=== PATIENT | female | born 1970 | race Asian ===

== ENCOUNTER 2016-10-08 03:55 | Emergency (ER) | payer OTHER ==
[2016-10-08] MEDS ORDERED: SODIUM CHLORIDE 1,000 ML IV STA (04:27)
[2016-10-08 04:28] VITALS: BMI 30.8
--- NOTE | 2016-10-08 04:29 | PDOC ---
History of Present Illness - General Chief Complaint: Vaginal Bleeding Stated Complaint: 7 WKS PREG, VAGINAL BLEEDING Time Seen by Provider: 10/08/16 04:18 - History of Present Illness Initial Comments: 10/08/16 05:09 45-year-old female with heavy vaginal bleeding since this afternoon passing clots. Patient had a confirmed IUP in the [facility] office earlier today. LMP 08/02/2016. Patient reports mild lower abdominal cramping with some nausea. Patient denies any previous complications during . 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 Past History - Past Medical History Allergies/Adverse Reactions: Allergies Allergy/AdvReac Type Severity Reaction Status Date / Time No Known Drug Allergies Allergy Verified 04/12/13 17:18 Home Medications: Ambulatory Orders NK [No Known Home Medication] 10/08/16 Anemia: Yes Asthma: No Cancer: No Cardiac Disorders: No CVA: No COPD: No CHF: No Dementia: No Diabetes: No GI Disorders: No Disorders: No HTN: No Hypercholesterolemia: No Liver Disease: No Seizures: No Thyroid Disease: No - Surgical History Abdominal Surgery: No Appendectomy: No Cardiac Surgery: No Cholecystectomy: No Lung Surgery: No Neurologic Surgery: No Orthopedic Surgery: No - Psycho/Social/Smoking Cessation Hx Smoking History: Never smoked Have you smoked in the past 12 months: No Hx Alcohol Use: No Drug/Substance Use Hx: No Substance Use Type: None Hx Substance Use Treatment: No Review of Systems - Review of Systems Able to Perform ROS?: Yes Is the patient limited [place] proficient: No Constitutional: No: Symptoms Reported, See HPI, Chills, Diaphoresis, Fever, Loss of Appetite, Malaise, Night Sweats, Weakness, Weight Stable, Unintentional Wgt. Loss, Unexplained wgt Loss, Other : Yes: Other (vaginal bleeding) *Physical Exam - Physical Exam General Appearance: Yes: Appropriately Dressed Female Pelvic Exam: positive: normal external exam, other (unable to visualize IS due to large clots. ) Gastrointestinal/Abdominal: positive: Normal Bowel Sounds, Soft, Other (patient ) ED Treatment Course - LABORATORY CBC & Chemistry Diagram: 10/08/16 04:40 Progress Note - Progress Note Progress Note: A: vaginal bleeding in ; cystitis P; cbc WBC 17 cmp beta hcg UA: WBC + leuks: TVUS *DC/Admit/Observation/Transfer Diagnosis at time of Disposition: Vaginal bleeding in Qualifiers: Trimester: first trimester Qualified Code(s): O46.91 - Antepartum hemorrhage, unspecified, first trimester - Referrals Referrals: Aurora Segura MD [Primary Care Provider] -
[2016-10-08 04:46] LABS: BASOPHIL 0.6 % (0-2.0); EOSINOPHIL 1.7 % (0-4.5); MCH 24.6 pg (25.7-33.7); MCHC 31.1 g/dl (32.0-36.0); MEAN CELL VOLUME 79.1 fl (80-96); MEAN PLT VOLUME 6.8 fl (7.5-11.1); NEUTROPHILS 77.9 % (42.8-82.8); PLATELET COUNT 395 K/MM3 (134-434); RDW 15.7 % (11.6-15.6); WHITE BLOOD COUNT 17.5 K/mm3 (4.0-10.0)
[2016-10-08 04:46] LABS: URINE APPEARANCE CLEAR; URINE BILIRUBIN NEGATIVE (NEGATIVE); URINE BLOOD 3+ (NEGATIVE); URINE COLOR LTYELLOW; URINE GLUCOSE (UA) NEGATIVE (NEGATIVE); URINE KETONE NEGATIVE (NEGATIVE); URINE NITRITE NEGATIVE (NEGATIVE); URINE UROBILINOGEN NEGATIVE mg/dL (0.2-1.0)
[2016-10-08 04:53] LABS: URINE LEUK ESTERASE 1+ (NEGATIVE); URINE PROTEIN 1+ (NEGATIVE)
[2016-10-08 04:58] LABS: INR 1.04 (0.82-1.09); PROTHROMBIN TIME (PATIENT) 11.4 SEC (9.98-11.88)
[2016-10-08 04:59] LABS: CALCIUM OXALATE CRYSTALS RARE /hpf (NONE SEEN); URINE BACTERIA RARE /hpf (NONE SEEN); URINE RBC 185 /hpf (0-3); URINE WBC 29 /hpf (3-5)
--- NOTE | 2016-10-08 05:58 | PDOC ---
*Physical Exam - Vital Signs Last Vital Signs Temp Pulse Resp BP Pulse Ox 98.8 F 104 H 18 141/91 99 10/08/16 04:26 10/08/16 04:26 10/08/16 04:26 10/08/16 04:26 10/08/16 04:26 ED Treatment Course - LABORATORY CBC & Chemistry Diagram: 10/08/16 04:40 - ADDITIONAL ORDERS Additional order review: Laboratory Results 10/08/16 10/08/16 10/08/16 04:40 04:40 04:31 INR 1.04 Beta HCG, Quant 4835.7 Urine Color Ltyellow Urine Appearance Clear Urine pH 6.0 Urine Protein 1+ H Urine Glucose (UA) Negative Urine Ketones Negative Urine Blood 3+ H Urine Nitrite Negative Urine Bilirubin Negative Urine Urobilinogen Negative Ur Leukocyte Esterase 1+ H Urine RBC 185 Urine WBC 29 Ur Epithelial Cells Rare Calcium Oxalate Crystal Rare Urine Bacteria Rare 10/08/16 04:40 RBC 4.88 MCV 79.1 L MCHC 31.1 L RDW 15.7 H D MPV 6.8 L D Neutrophils % 77.9 Lymphocytes % 12.0 Monocytes % 7.8 Eosinophils % 1.7 D Basophils % 0.6 - Medications Given in the ED: ED Medications Discontinued Medications Generic Name Dose Route Start Last Admin Trade Name Freq PRN Reason Stop Dose Admin Sodium Chloride 1,000 mls @ 1,000 mls/hr 10/08/16 04:27 10/08/16 05:02 Normal Saline - IV 10/08/16 05:26 1,000 mls/hr ASDIR STA Administration Medical Decision Making - Medical Decision Making 10/08/16 05:58 agree with care from BHUMI Barnes *DC/Admit/Observation/Transfer Diagnosis at time of Disposition: Vaginal bleeding in Qualifiers: Trimester: first trimester Qualified Code(s): O46.91 - Antepartum hemorrhage, unspecified, first trimester - Discharge Dispostion Disposition: HOME Condition at time of disposition: Good - Prescriptions Prescriptions: Nitrofurantoin Monohyd/M-Cryst [Macrobid -] 100 mg PO BID #14 capsule - Referrals Referrals: Aurora Segura MD [Primary Care Provider] - - Patient Instructions Printed Discharge Instructions: Miscarriage Additional Instructions: An early is seen in the uterus at approximately 6 weeks 4 days, but with no cardiac activity suspicious for possible miscarriage. You will need to follow-up with your SITE HEAD in 2 days for repeat evaluation. Your beta today was over 4835. You are also treated for possible UTI - Post Discharge Activity
[2016-10-08 06:06] VITALS: TEMP 98.3
--- NOTE | 2016-10-08 07:31 | PDOC ---
*Physical Exam - Vital Signs Last Vital Signs Temp Pulse Resp BP Pulse Ox 98.3 F 87 18 135/75 98 10/08/16 06:05 10/08/16 07:05 10/08/16 07:05 10/08/16 07:05 10/08/16 07:05 - Physical Exam General Appearance: Yes: Appropriately Dressed. No: Apparent Distress HEENT: positive: Normal Voice Neck: positive: Supple Respiratory/Chest: negative: Respiratory Distress Gastrointestinal/Abdominal: positive: Soft. negative: Tender Extremity: positive: Normal Inspection Integumentary: positive: Dry, Warm Neurologic: positive: Fully Oriented, Alert, Normal Mood/Affect ED Treatment Course - LABORATORY CBC & Chemistry Diagram: 10/08/16 04:40 - ADDITIONAL ORDERS Additional order review: Laboratory Results 10/08/16 10/08/16 10/08/16 04:40 04:40 04:40 INR 1.04 Beta HCG, Quant 4835.7 Urine Color Urine Appearance Urine pH Urine Protein Urine Glucose (UA) Urine Ketones Urine Blood Urine Nitrite Urine Bilirubin Urine Urobilinogen Ur Leukocyte Esterase Urine RBC Urine WBC Ur Epithelial Cells Calcium Oxalate Crystal Urine Bacteria Blood Type O POSITIVE Antibody Screen Negative 10/08/16 04:31 INR Beta HCG, Quant Urine Color Ltyellow Urine Appearance Clear Urine pH 6.0 Urine Protein 1+ H Urine Glucose (UA) Negative Urine Ketones Negative Urine Blood 3+ H Urine Nitrite Negative Urine Bilirubin Negative Urine Urobilinogen Negative Ur Leukocyte Esterase 1+ H Urine RBC 185 Urine WBC 29 Ur Epithelial Cells Rare Calcium Oxalate Crystal Rare Urine Bacteria Rare Blood Type Antibody Screen 10/08/16 04:40 RBC 4.88 MCV 79.1 L MCHC 31.1 L RDW 15.7 H D MPV 6.8 L D Neutrophils % 77.9 Lymphocytes % 12.0 Monocytes % 7.8 Eosinophils % 1.7 D Basophils % 0.6 - Medications Given in the ED: ED Medications Discontinued Medications Generic Name Dose Route Start Last Admin Trade Name Freq PRN Reason Stop Dose Admin Sodium Chloride 1,000 mls @ 1,000 mls/hr 10/08/16 04:27 10/08/16 05:02 Normal Saline - IV 10/08/16 05:26 1,000 mls/hr ASDIR STA Administration Medical Decision Making - Medical Decision Making 10/08/16 07:30 45 yo F, , p/w 1st trimester bleed. Unable to assess Os 2/2 clots in vault per prior team. Ua w/ 1+ LE. Ucx pending, plan is to treat. Beta >4K. O+ on T&S, US pending 10/08/16 07:31 10/08/16 07:54 10/08/16 09:44 Low lying gestational sac in cervix @ 6w 4d, w/ no cardiac activity c/f miscarriage. Pt remains stable in ED. Will dc to f/u with SNOW TECHNICIAN 10/08/16 10:06 *DC/Admit/Observation/Transfer Diagnosis at time of Disposition: Vaginal bleeding in Qualifiers: Trimester: first trimester Qualified Code(s): O46.91 - Antepartum hemorrhage, unspecified, first trimester - Discharge Dispostion Disposition: HOME Condition at time of disposition: Good - Prescriptions Prescriptions: Nitrofurantoin Monohyd/M-Cryst [Macrobid -] 100 mg PO BID #14 capsule - Referrals Referrals: Aurora Segura MD [Primary Care Provider] - - Patient Instructions Printed Discharge Instructions: Miscarriage Additional Instructions: An early is seen in the uterus at approximately 6 weeks 4 days, but with no cardiac activity suspicious for possible miscarriage. You will need to follow-up with your SNOW TECHNICIAN in 2 days for repeat evaluation. Your beta today was over 4835. You are also treated for possible UTI - Post Discharge Activity
[2016-10-08] MEDS ORDERED: ACETAMINOPHEN 325 MG TABLET (FP) PO ONE (07:55)
[2016-10-08] MEDS ORDERED: ACETAMINOPHEN 325 MG TABLET (FP) ONE (08:01)
[2016-10-08 10:05] VITALS: BP 125/75; PULSE 90
== END 2016-10-08 10:10 | disposition home or self-care (01) ==
LOC: JER 03:55
PROC: 3E0337Z Introduction of Electrolytic and Water Balance Substance into Peripheral Vein, Percutaneous Approach (ICD-10-PCS; principal; 2016-10-08)
DX: O26.891 Other specified pregnancy related conditions, first trimester (principal); O46.91 Antepartum hemorrhage, unspecified, first trimester; Z3A.01 Less than 8 weeks gestation of pregnancy
CPT/HCPCS: 36415; 76817-TC; 76856-TC; 81003; 81015; 84702; 85025; 85610; 86850; 86900; 86901; 87086; 96360; 99283-25

== ENCOUNTER 2016-10-10 13:45 | Day surgery (SDC) | payer OTHER ==
[2016-10-09 15:23] VITALS: BMI 30.8
[2016-10-10] MEDS ORDERED: ONDANSETRON 4 MG/2 ML VIAL IVPB PRN (14:19)
[2016-10-10] MEDS ORDERED: ACETAMINOPHEN 325 MG TABLET (FP) PO PRN (14:19)
[2016-10-10] MEDS ORDERED: IBUPROFEN 400 MG TABLET (FP) PO PRN (14:19)
--- NOTE | 2016-10-10 14:24 | HP ---
Admitting History and Physical - Admission History of Present Illness: 45 yo @ appoximately 11 wks by dates with an incomplete s/p vaginal bleeding, seen in office yesterday with retained products, cervix dilated <1cm She was counseled regarding observation, medical and surgical management, desires surgical intervention History Source: Patient - Past Medical History Pulmonary: No: Asthma ...LMP: 07/19/16 ...LMP Comment: REGULAR ...: Yes (HAVING MISSED AB) - Past Surgical History Additional Past Surgical History: CD - Smoking History Smoking history: Never smoked Have you smoked in the past 12 months: No - Alcohol/Substance Use Hx Alcohol Use: No Home Medications - Allergies Allergies/Adverse Reactions: Allergies Allergy/AdvReac Type Severity Reaction Status Date / Time No Known Drug Allergies Allergy Verified 04/12/13 17:18 - Home Medications Home Medications: Ambulatory Orders Nitrofurantoin Monohyd/M-Cryst [Nitrofurantoin [place]-Mcr 100 mg] 100 mg PO BID Acetaminophen [Pain Relief] 650 mg PO PRN 10/10/16 Doxycycline Monohydrate [Mondoxyne Nl] 100 mg PO BID #6 capsule 10/10/16 Ibuprofen [Advil -] 200 mg PO QID 10/10/16 Methylergonovine Maleate [Methergine -] 0.2 mg PO TID #6 tablet MDD 2 10/10/16 Family Disease History - Family Disease History Family History: Denies Review of Systems - Review of Systems Constitutional: reports: No Symptoms Cardiovascular: reports: No Symptoms Respiratory: reports: No Symptoms Gastrointestinal: reports: No Symptoms Genitourinary: reports: No Symptoms Endocrine: reports: No Symptoms Hematology/Lymphatic: reports: No Symptoms Psychiatric: reports: No Symptoms Physical Examination Vital Signs: Vital Signs Temperature 98.3 F 10/10/16 14:04 Pulse Rate 94 H 10/10/16 14:04 Respiratory Rate 20 10/10/16 14:04 Blood Pressure 149/81 10/10/16 14:04 O2 Sat by Pulse Oximetry (%) Constitutional: Yes: Well Nourished, No Distress, Calm Cardiovascular: Yes: Regular Rate and Rhythm Respiratory: Yes: Regular, CTA Bilaterally Gastrointestinal: Yes: Normal Bowel Sounds, Soft ...Rectal Exam: Yes: Deferred Edema: No Labs: Blood type: O positive bHCG 6472 (10/07) --> 1149 (10/09) WMC 11.9 (10/09) Imaging - Results Ultrasound: Image Reviewed Assessment/Plan 45 yo incomplete for suction D&C 1. Consents reviewed and signed 2. Blood type O positive 3. Plan for doxycycline PO x 3 days will also give methergine TID x 2 days 4. SCDs for DVT PPX 5. Will proceed to OR
[2016-10-10] MEDS ORDERED: SUCCINYLCHOLINE CHLORIDE 200 MG/10 ML VIAL ONE (15:02)
[2016-10-10] MEDS ORDERED: MIDAZOLAM HCL 2 MG/2 ML SINGLE DOSE VIAL ONE (15:02)
[2016-10-10] MEDS ORDERED: PROPOFOL 20 ML ONE ×3 (15:02→15:03)
[2016-10-10] MEDS ORDERED: ceFAZolin SODIUM 1 GM VIAL IVPB ONE (15:29)
[2016-10-10] MEDS ORDERED: ONDANSETRON 4 MG/2 ML VIAL IVPUSH PRN (16:01)
[2016-10-10] MEDS ORDERED: oxyCODONE HCL 5 MG TABLET PO PRN (16:01)
--- NOTE | 2016-10-10 16:06 | OP ---
Operative Note - Note: Operative Date: 10/10/16 Pre-Operative Diagnosis: incomplete Operation: suction dilation and curettage Findings: cervix dilated 1 cm Post-Operative Diagnosis: Same as Pre-op Surgeon: Asha Potter Anesthesiologist/RN STARS: Galina Coles Anesthesia: General Specimens Removed: products of conception Estimated Blood Loss (mls): 10 Fluid Volume Replaced (mls): 500 Operative Report Dictated: Yes
[2016-10-10] MEDS ORDERED: LACTATED RINGERS SOLUTION 1,000 ML IV SCH (16:15)
[2016-10-10 17:21] VITALS: BP 130/80
[2016-10-10 18:00] VITALS: TEMP 99
[2016-10-10] MEDS ORDERED: ACETAMINOPHEN 325 MG TABLET (FP) PO ONE (18:25)
[2016-10-10 18:27] VITALS: PULSE 80
[2016-10-10] MEDS ORDERED: ACETAMINOPHEN 325 MG TABLET (FP) ONE (18:30)
--- NOTE | 2016-10-11 12:49 | OP ---
DATE OF OPERATION: 10/10/2016 ATTENDING PHYSICIAN RESPONSIBLE TO SIGN REPORT: Nicole Potter MD PREOPERATIVE DIAGNOSIS: Incomplete . POSTOPERATIVE DIAGNOSIS: Incomplete . SURGERY: Suction dilatation and curettage. FINDINGS: The cervix dilated at 1 cm, products in the lower uterine segment on the ultrasound. SURGEON: Nicole Potter MD ANESTHESIOLOGIST: Galina Coles MD ANESTHESIA: General LMA. SPECIMENS REMOVED: Products of conception. ESTIMATED BLOOD LOSS: 100 mL. FLUIDS GIVEN: 500 mL. INDICATIONS: Patient is a 45-year-old 4, para 2, at approximately 11 weeks by dates, noted to have a collapsing gestational sac on ultrasound. She was seen in the emergency room on the October 08 and was found to have a missed . She was seen in the office and was found to have an open cervix. She was counseled regarding medical and surgical options and observation. She opted for surgical management. Patient was counseled regarding risks, benefits, alternatives, and complications of the procedure including infection, bleeding, damage to surrounding organs such as bowel, bladder, uterine perforation, and hemorrhage requiring transfusion. She expressed understanding and was brought to the operating room. DESCRIPTION OF PROCEDURE: When anesthesia was found to be adequate, patient was prepped and draped in a normal sterile fashion, placed in dorsal lithotomy position using Ketan stirrups. A weighted speculum was placed in the patients vagina. Anterior vaginal was retracted using a Barnett retractor. The anterior lip of the cervix was grasped using an Allis clamp. The products were noted in the cervix and which was removed. A size 7 curved suction curette was placed in the uterine cavity and suction was applied to 60 mmHg. Removal of tissue was noted. Three passes were performed. Ultrasound at bedside was performed, and a thin endometrial stripe was noted. All instruments were removed from the patients vagina. Estimated blood loss was 10 mL. Patient was woken, reversed from anesthesia, and brought to the recovery room in stable condition. NICOLE POTTER M.D. [id number] MTDD
--- NOTE | 2016-10-14 16:08 | PATH ---
Surgical Pathology Report Patient Name: DEVANTE TEJADA [facility]. Rec. #: [id number] /Age/Gender: 1970 (Age: 46) / F Account: [id number] Location: [facility] SUR[facility]ICAL Taken: 10/10/2016 Received: 10/13/2016 Reported: 10/14/2016 Physicians: Asha Potter Specimen(s) Received PRODUCTS OF CONCEPTION Clinical History Incomplete Final Diagnosis PRODUCTS OF CONCEPTION: NO SOMATIC TISSUE IDENTIFIED. CHORIONIC VILLI PRESENT, PARTIALLY HYDROPIC. Electronically Signed Conner Corey M.D. Gross Description Received in formalin labeled "products of conception" is a 6.0 x 4.2 x 1.2 cm aggregate of rick-brown soft tissue fragments. Villous tissue is identified. No definite somatic tissue is identified. A hotel services sales representative portion is submitted in one cassette. /10/13/2016 saudi10/13/2016
== END 2016-10-10 18:45 | disposition home or self-care (01) ==
LOC: JASU-SURG 13:45
PROVIDERS: ATTEND Obstetrics & Gynecology
PROC: 10D17ZZ Extraction of Products of Conception, Retained, Via Natural or Artificial Opening (ICD-10-PCS; principal; 2016-10-10 15:00)
DX: O03.4 Incomplete spontaneous abortion without complication (principal); Z3A.11 11 weeks gestation of pregnancy
CPT/HCPCS: 88305-TC; 94760

== ENCOUNTER 2018-11-08 16:58 | Inpatient (IN) | payer BC ==
--- NOTE | 2018-11-08 17:05 | PDOC ---
Rapid Medical Evaluation Chief Complaint: Vaginal Bleeding Time Seen by Provider: 11/08/18 17:03 Medical Evaluation: Allergies Allergy/AdvReac Type Severity Reaction Status Date / Time No Known Drug Allergies Allergy Verified 04/12/13 17:18 11/08/18 17:04 This patient had a brief in-person evaluation in triage cc: syncope x 2. Reports vaginal bleeding x 3 days with syncope today and yesterday Feeling weak today HPI: NAD appears with pallor of skin even and unlabored breathing orders: labs, urine This patient will proceed to ED for further evaluation. Discharge Disposition - Diagnosis Vaginal bleeding - Referrals Referrals: Aurora Segura MD [Primary Care Provider] - - Patient Instructions - Post Discharge Activity
[2018-11-08 18:03] LABS: BASO % 0.5 % (0-2.0); EOS % 0.9 % (0-4.5); HEMATOCRIT 22.4 % (32.4-45.2); HEMOGLOBIN 7.1 GM/dL (10.7-15.3); LYMPH % 16.6 % (8-40); MCH 28.8 pg (25.7-33.7); MCHC 31.8 g/dl (32.0-36.0); MEAN CELL VOLUME 90.6 fl (80-96); MEAN PLT VOLUME 6.7 fl (7.5-11.1); MONO % 5.5 % (3.8-10.2); NEUT % 76.5 % (42.8-82.8); PLATELET COUNT 355 K/MM3 (134-434); RBC 2.47 M/mm3 (3.60-5.2); RDW 14.5 % (11.6-15.6); WHITE BLOOD COUNT 12.3 K/mm3 (4.0-10.0)
[2018-11-08 18:21] LABS: INR 0.99 (0.83-1.09); PROTHROMBIN TIME (PATIENT) 11.7 SEC (9.7-13.0)
[2018-11-08 18:24] LABS: ALBUMIN 3.3 g/dl (3.4-5.0); BILIRUBIN,TOTAL 0.2 mg/dL (0.2-1); BLOOD UREA NITROGEN 12.1 mg/dL (7-18); CALCIUM 8.3 mg/dL (8.5-10.1); CREATININE 0.9 mg/dL (0.55-1.3); POTASSIUM 3.9 mmol/L (3.5-5.1); TOT PROT 6.4 g/dl (6.4-8.2)
[2018-11-08] MEDS ORDERED: SODIUM CHLORIDE 1,000 ML IV STA (18:40)
--- NOTE | 2018-11-08 18:46 | PDOC ---
History of Present Illness - General Chief Complaint: Vaginal Bleeding Stated Complaint: VAGINAL BLEEDING Time Seen by Provider: 11/08/18 17:03 History Source: Patient - History of Present Illness Timing/Duration: reports: getting worse Past History - Past Medical History Allergies/Adverse Reactions: Allergies Allergy/AdvReac Type Severity Reaction Status Date / Time No Known Drug Allergies Allergy Verified 11/08/18 17:06 Home Medications: Ambulatory Orders Nitrofurantoin Monohyd/M-Cryst [Nitrofurantoin [place]-Mcr 100 mg] 100 mg PO BID Acetaminophen [Pain Relief] 650 mg PO PRN 10/10/16 Doxycycline Monohydrate [Mondoxyne Nl] 100 mg PO BID #6 capsule 10/10/16 Ibuprofen [Advil -] 200 mg PO QID 10/10/16 Methylergonovine Maleate [Methergine -] 0.2 mg PO TID #6 tablet MDD 2 10/10/16 Anemia: Yes Asthma: No Cancer: No Cardiac Disorders: No CVA: No COPD: No CHF: No Dementia: No Diabetes: No GI Disorders: No Disorders: No HTN: No Hypercholesterolemia: No Liver Disease: No Seizures: No Thyroid Disease: No Other medical history: fibroids - Surgical History Abdominal Surgery: No Appendectomy: No Cardiac Surgery: No Cholecystectomy: No Lung Surgery: No Neurologic Surgery: No Orthopedic Surgery: No - Reproductive History (#): 2 Para: 2 - Suicide/Smoking/Psychosocial Hx Smoking History: Never smoked Have you smoked in the past 12 months: No Information on smoking cessation initiated: No Hx Alcohol Use: No Drug/Substance Use Hx: No Substance Use Type: None Hx Substance Use Treatment: No Review of Systems - Review of Systems Constitutional: Yes: Weakness. No: Chills, Fever Respiratory: Yes: Shortness of Breath Cardiac (ROS): Yes: Lightheadedness, Syncope. No: Chest Pain, Palpitations ABD/GI: No: Nausea, Vomiting, Abdominal cramping *Physical Exam - Vital Signs Last Vital Signs Temp Pulse Resp BP Pulse Ox 98.6 F 109 H 18 113/61 99 11/08/18 17:03 11/08/18 17:03 11/08/18 17:03 11/08/18 17:03 11/08/18 17:03 - Physical Exam Comments: 11/08/18 18:53 appears pale General Appearance: Yes: Appropriately Dressed Neck: positive: Supple Respiratory/Chest: positive: Lungs Clear, Normal Breath Sounds. negative: Respiratory Distress Cardiovascular: positive: Regular Rate, S1, S2 Gastrointestinal/Abdominal: positive: Soft. negative: Tender Integumentary: positive: Dry, Warm Neurologic: positive: Fully Oriented, Alert, Normal Mood/Affect ED Treatment Course - LABORATORY CBC & Chemistry Diagram: 11/08/18 17:31 11/08/18 17:31 - ADDITIONAL ORDERS Additional order review: Laboratory Results 11/08/18 11/08/18 11/08/18 17:34 17:31 17:31 PT with INR 11.70 INR 0.99 Sodium 141 Potassium 3.9 Chloride 106 Carbon Dioxide 25 Anion Gap 9 BUN 12.1 Creatinine 0.9 Est GFR (CKD-EPI)AfAm 88.25 Est GFR (CKD-EPI)NonAf 76.14 Random Glucose 190 H Calcium 8.3 L Total Bilirubin 0.2 AST 10 L ALT 21 Alkaline Phosphatase 61 Total Protein 6.4 Albumin 3.3 L Urine HCG, Qual Negative 11/08/18 17:31 RBC 2.47 L MCV 90.6 MCHC 31.8 L RDW 14.5 MPV 6.7 L Neutrophils % 76.5 Lymphocytes % 16.6 D Monocytes % 5.5 Eosinophils % 0.9 Basophils % 0.5 Medical Decision Making - Medical Decision Making 11/08/18 18:41 48 yo F, h/o fibroids, anemia on iron pills, no transfusions, scheduled for myomectomy 12/09 at [facility] w/ Dr Lemus, here heavy vaginal bleeding x 3 days. Pt states she got her nl period on 10/09 and has bled intermittently since, worse 3 days ago. Admits to recurrent syncopal episodes each time she has her menses, last time yesterday. Also reports SOB w/ dizziness while ascending stairs at home yesterday. Now feels weak. No CP or palpitations See exam Worsening anemia in setting of menorrhagia in pt w/ known h/o fibroids, scheduled for myomectomy on 12/09 at [facility] w/ Dr Lemus Moris pale, tachy here -IVF -labs -transfusion -arrange admission 11/08/18 19:06 2 unite PRBCs ordered. Pt signed out to BHUMI Barnes at this time to arrange admission *DC/Admit/Observation/Transfer Diagnosis at time of Disposition: Vaginal bleeding, Fibroids Anemia Qualifiers: Anemia type: unspecified type Qualified Code(s): D64.9 - Anemia, unspecified - Discharge Dispostion Condition at time of disposition: Fair - Referrals Referrals: Aurora Segura MD [Staff Physician] - - Patient Instructions - Post Discharge Activity
--- NOTE | 2018-11-08 19:36 | PDOC ---
*Physical Exam - Vital Signs Last Vital Signs Temp Pulse Resp BP Pulse Ox 98.6 F 109 H 18 113/61 99 11/08/18 17:03 11/08/18 17:03 11/08/18 17:03 11/08/18 17:03 11/08/18 17:03 - Physical Exam General Appearance: Yes: Appropriately Dressed Integumentary: positive: Pale, Cold Neurologic: positive: Fully Oriented, Alert, Normal Mood/Affect ED Treatment Course - LABORATORY CBC & Chemistry Diagram: 11/08/18 17:31 11/08/18 17:31 - ADDITIONAL ORDERS Additional order review: Laboratory Results 11/08/18 11/08/18 11/08/18 17:34 17:31 17:31 PT with INR 11.70 INR 0.99 PTT (Actin FS) Sodium Potassium Chloride Carbon Dioxide Anion Gap BUN Creatinine Est GFR (CKD-EPI)AfAm Est GFR (CKD-EPI)NonAf Random Glucose Calcium Total Bilirubin AST ALT Alkaline Phosphatase Total Protein Albumin Urine HCG, Qual Negative Blood Type O POSITIVE Antibody Screen Negative Crossmatch See Detail 11/08/18 11/08/18 17:31 17:31 PT with INR INR PTT (Actin FS) 28.3 Sodium 141 Potassium 3.9 Chloride 106 Carbon Dioxide 25 Anion Gap 9 BUN 12.1 Creatinine 0.9 Est GFR (CKD-EPI)AfAm 88.25 Est GFR (CKD-EPI)NonAf 76.14 Random Glucose 190 H Calcium 8.3 L Total Bilirubin 0.2 AST 10 L ALT 21 Alkaline Phosphatase 61 Total Protein 6.4 Albumin 3.3 L Urine HCG, Qual Blood Type Antibody Screen Crossmatch 11/08/18 17:31 RBC 2.47 L MCV 90.6 MCHC 31.8 L RDW 14.5 MPV 6.7 L Neutrophils % 76.5 Lymphocytes % 16.6 D Monocytes % 5.5 Eosinophils % 0.9 Basophils % 0.5 Medical Decision Making - Medical Decision Making 11/08/18 20:41 Dr. Belkys [place]. patient to be admitted for blood transfusion 11/08/18 20:47 Dr. Rizvi recommend transfusion and outpatient management with Dr. walker 11/08/18 20:50 Patient signed out to Efren TRIPATHI for admission/ patient is to be admitted under Dr. jessica 11/09/18 02:51 *DC/Admit/Observation/Transfer Diagnosis at time of Disposition: Vaginal bleeding, Fibroids Anemia Qualifiers: Anemia type: unspecified type Qualified Code(s): D64.9 - Anemia, unspecified - Discharge Dispostion Condition at time of disposition: Fair Decision to Admit order: Yes - Referrals - Patient Instructions - Post Discharge Activity
[2018-11-08] MEDS ORDERED: ACETAMINOPHEN 325 MG TABLET (FP) PO PRN (21:48)
--- NOTE | 2018-11-08 21:52 | HP ---
CHIEF COMPLAINT: vaginal bleeding PCP: Dr. Henry HISTORY OF PRESENT ILLNESS: 48 year old female with PMHx of Anemia, Fibroids pending myomectomy 12/09 at [facility] with Dr. Lemus arrived to ED for heavy vaginal bleed for past three day, LMP was 10/09 since then has had intermittent bleed, however now worse with episodes of syncope x2. Patient complain of sob with dizziness with activity, weakness. However denies CP, palpitations, no urinary symptoms, denies constipation diarrhea. ER course was notable for: Urine HCG: negative hgb 7.1 transfuse 2 unit PRBC, given 1L IVF Spoke to OBGYN backend python developer Dr. Weems need tranfusion, can follow outpatient with dr. lemus needs pending vaginal US, Recent Travel: in September traveled (cruise [place] and [facility]) PAST MEDICAL HISTORY: Anemia, Fibroids PAST SURGICAL HISTORY: h/o of Reproductive History (#): 4 -- h/o of 2 miscarriage Para: 2 Social History: Smoking:no Alcohol:no Drugs: no Family History: Father/Mother: DM Allergies: No Known Drug Allergies Allergy (Verified 11/08/18 17:06) HOME MEDICATIONS: Home Medications Medication Instructions Recorded Nitrofurantoin Monohyd/M-Cryst 100 mg PO BID 10/09/16 [Nitrofurantoin [place]-Mcr 100 mg] Acetaminophen [Pain Relief] 650 mg PO PRN 10/10/16 Doxycycline Monohydrate [Mondoxyne 100 mg PO BID #6 capsule 10/10/16 Nl] Ibuprofen [Advil -] 200 mg PO QID 10/10/16 Methylergonovine Maleate 0.2 mg PO TID #6 tablet MDD 2 10/10/16 [Methergine -] REVIEW OF SYSTEMS CONSTITUTIONAL: Absent: + generalized weakness, malaise HEENT: Absent: rhinorrhea, nasal congestion, throat pain, throat swelling, difficulty swallowing, mouth swelling, ear pain, eye pain, visual changes CARDIOVASCULAR:+ syncope,+lightheadedness Absent: chest pain,palpitations, peripheral edema RESPIRATORY: + shortness of breath Absent: cough, orthopnea, wheezing, stridor , hemoptysis GASTROINTESTINAL:Absent: abdominal pain, abdominal distension, nausea, vomiting , diarrhea, constipation, melena, hematochezia GENITOURINARY: + vaginal bleeding MUSCULOSKELETAL: Absent: myalgia, arthralgia, joint swelling, back pain, neck pain SKIN: Absent: rash, itching, pallor HEMATOLOGIC/IMMUNOLOGIC: + vaginal bleeding NEUROLOGIC: Absent: headache, focal weakness or paresthesias, unsteady gait, seizure, mental status changes, bladder or bowel incontinence PSYCHIATRIC: Absent: anxiety, depression, suicidal or homicidal ideation, hallucinations. PHYSICAL EXAMINATION Vital Signs - 24 hr 11/08/18 11/08/18 17:03 20:06 Temperature 98.6 F 98.3 F Pulse Rate 109 H Pulse Rate [ 112 H Left] Respiratory 18 18 Rate Blood Pressure 113/61 Blood Pressure 114/76 [Left] O2 Sat by Pulse 99 99 Oximetry (%) GENERAL: Awake, alert, and fully oriented, in no acute distress. HEENT: NC/AT,EOMI, PERRLA, No JVD LUNGS: Breath sounds equal, clear to auscultation bilaterally. No wheezes, and no crackles. HEART: Regular rate and rhythm, normal S1 and S2 without murmur, rub or gallop. ABDOMEN: Soft, tender, not distended, normoactive bowel sounds, no guarding, no rebound, no masses. MUSCULOSKELETAL: Normal range of motion at all joints. No bony deformities or tenderness. No CVA tenderness. NEUROLOGICAL: Cranial nerves II-XII intact. Normal speech. Normal gait. PSYCHIATRIC: Cooperative. Good eye contact. Appropriate mood and affect. SKIN: Warm, dry, normal turgor, no rashes or lesions noted, normal capillary refill. Laboratory Results - last 24 hr 11/08/18 11/08/18 11/08/18 17:31 17:31 17:31 WBC 12.3 H RBC 2.47 L Hgb 7.1 L Hct 22.4 L D MCV 90.6 MCH 28.8 D MCHC 31.8 L RDW 14.5 Plt Count 355 MPV 6.7 L Absolute Neuts (auto) 9.4 H Neutrophils % 76.5 Lymphocytes % 16.6 D Monocytes % 5.5 Eosinophils % 0.9 Basophils % 0.5 Nucleated RBC % 0 PT with INR INR PTT (Actin FS) 28.3 Sodium 141 Potassium 3.9 Chloride 106 Carbon Dioxide 25 Anion Gap 9 BUN 12.1 Creatinine 0.9 Est GFR (CKD-EPI)AfAm 88.25 Est GFR (CKD-EPI)NonAf 76.14 Random Glucose 190 H Calcium 8.3 L Total Bilirubin 0.2 AST 10 L ALT 21 Alkaline Phosphatase 61 Total Protein 6.4 Albumin 3.3 L Urine HCG, Qual Blood Type Antibody Screen Crossmatch 11/08/18 11/08/18 11/08/18 17:31 17:31 17:34 WBC RBC Hgb Hct MCV MCH MCHC RDW Plt Count MPV Absolute Neuts (auto) Neutrophils % Lymphocytes % Monocytes % Eosinophils % Basophils % Nucleated RBC % PT with INR 11.70 INR 0.99 PTT (Actin FS) Sodium Potassium Chloride Carbon Dioxide Anion Gap BUN Creatinine Est GFR (CKD-EPI)AfAm Est GFR (CKD-EPI)NonAf Random Glucose Calcium Total Bilirubin AST ALT Alkaline Phosphatase Total Protein Albumin Urine HCG, Qual Negative Blood Type O POSITIVE Antibody Screen Negative Crossmatch See Detail ASSESSMENT/PLAN: 48 year old female with PMHx of Anemia, Fibroids pending myomectomy 12/09 at [facility] with Dr. Lemus arrived to ED for heavy vaginal bleed for past three day, LMP was 10/09 since then has had intermittent bleed, however now worse with episodes of syncope x2. # vaginal bleed # Fibroids # Symptomatic Anemia In ED: Urine HCG: negative hgb 7.1 transfuse 2 unit PRBC, given 1L IVF Spoke to OBGYN backend python developer Dr. Weems need tranfusion, can follow outpatient with dr. lemus needs - pending vaginal US - repeat cbc post transfusion - follow up UA C&S Problem List - Problem (1) Symptomatic anemia Code(s): D64.9 - ANEMIA, UNSPECIFIED (2) Vaginal bleeding Code(s): N93.9 - ABNORMAL UTERINE AND VAGINAL BLEEDING, UNSPECIFIED (3) Fibroids Code(s): D21.9 - BENIGN NEOPLASM OF CONNECTIVE AND OTHER SOFT TISSUE, UNSP Visit type - Emergency Visit Emergency Visit: Yes Care time: The patient presented to the Emergency Department on the above date and was hospitalized for further evaluation of their emergent condition. - New Patient This patient is new to me today: Yes Date on this admission: 11/08/18 - Critical Care Critical Care patient: No
[2018-11-09 04:44] VITALS: BMI 31.7
[2018-11-09] MEDS ORDERED: ALBUTEROL SO4 8 GM HFA INHALER IH PRN (08:04)
[2018-11-09] MEDS ORDERED: FUROSEMIDE 40 MG/4 ML INJECTABLE VIAL IVPUSH ONE (08:04)
[2018-11-09] MEDS ORDERED: ALBUTEROL SO4 2.5/IPRATROPIUM 0.5 INH SOL 3 ML VIAL.NEB. NEB PRN (08:04)
--- NOTE | 2018-11-09 08:04 | PN ---
Progress Note, Physician Chief Complaint: AWAKE ALERT NO FEVERS C/O SCATTERED WHEEZES EVENTS AND NOTES REVIEWED H/O UTERINE FIBROIDS WITH VAGINAL BLEEDING SCHEDULED FOR MYOMECTOMY WITH ANA M MIGUEL AT [facility]. - Current Medication List Current Medications: Active Medications Acetaminophen (Tylenol -) 650 mg PO Q4H PRN PRN Reason: PAIN LEVEL 1-5 - Objective Vital Signs: Vital Signs Temperature 98.8 F 11/09/18 03:30 Pulse Rate 100 H 11/09/18 03:30 Respiratory Rate 20 11/09/18 03:30 Blood Pressure 146/62 11/09/18 03:30 O2 Sat by Pulse Oximetry (%) 98 11/09/18 00:45 Constitutional: Yes: Mild Distress Eyes: Yes: WNL HENT: Yes: WNL Neck: Yes: WNL Cardiovascular: Yes: Regular Rate and Rhythm, Murmur Respiratory: Yes: Cough, Wheezes Genitourinary: Yes: Hematuria, Vaginal Bleeding Musculoskeletal: Yes: WNL Extremities: Yes: WNL Edema: No Peripheral Pulses WNL: Yes Integumentary: Yes: WNL Wound/Incision: Yes: Clean/Dry Neurological: Yes: WNL ...Motor Strength: WNL Psychiatric: Yes: WNL Labs: CBC, BMP 11/08/18 17:31 INR, PTT INR 0.99 (0.83-1.09) 11/08/18 17:31 Problem List - Problems (1) Asthma Code(s): J45.909 - UNSPECIFIED ASTHMA, UNCOMPLICATED (2) Anemia Code(s): D64.9 - ANEMIA, UNSPECIFIED Qualifiers: Anemia type: unspecified type Qualified Code(s): D64.9 - Anemia, unspecified (3) Fibroids Code(s): D21.9 - BENIGN NEOPLASM OF CONNECTIVE AND OTHER SOFT TISSUE, UNSP (4) Symptomatic anemia Code(s): D64.9 - ANEMIA, UNSPECIFIED (5) Vaginal bleeding Code(s): N93.9 - ABNORMAL UTERINE AND VAGINAL BLEEDING, UNSPECIFIED Assessment/Plan HCG NEG START DUONEBS/HFA LASIX IV X 1 40MG DIRECTOR TRADING CONSULT CHECK CBC TODAY F/U WITH PRBC TRANSFUSION NEEDED
[2018-11-09 08:11] LABS: BLOOD UREA NITROGEN 11.5 mg/dL (7-18); CALCIUM 7.8 mg/dL (8.5-10.1); CREATININE 0.6 mg/dL (0.55-1.3); POTASSIUM 3.8 mmol/L (3.5-5.1)
[2018-11-09 08:44] LABS: HEMATOCRIT 24.8 % (32.4-45.2); HEMOGLOBIN 8.3 GM/dL (10.7-15.3); MCH 30.3 pg (25.7-33.7); MCHC 33.4 g/dl (32.0-36.0); MEAN CELL VOLUME 90.6 fl (80-96); MEAN PLT VOLUME 6.5 fl (7.5-11.1); PLATELET COUNT 278 K/MM3 (134-434); RBC 2.74 M/mm3 (3.60-5.2); RDW 13.9 % (11.6-15.6); WHITE BLOOD COUNT 11.1 K/mm3 (4.0-10.0)
--- NOTE | 2018-11-09 09:29 | EKG ---
Test Reason : Blood Pressure : / mmHG Vent. Rate : 111 BPM Atrial Rate : 111 BPM P-R Int : 176 ms QRS Dur : 080 ms QT Int : 356 ms P-R-T Axes : 045 064 021 degrees QTc Int : 484 ms SINUS TACHYCARDIA SEPTAL INFARCT , AGE UNDETERMINED ABNORMAL ECG NO PREVIOUS ECGS AVAILABLE Confirmed by Tristan Roman MD ([id number]) on 11/09/2018 9:29:35 AM Referred By: Confirmed By:Tristan Roman MD
--- NOTE | 2018-11-09 16:34 | CON.OBG ---
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 Henry Reason for Consultation:: Bleeding and fibroids. - History of Present Illness Chief Complaint: Pt. was admitted via ED with active bleedings and syncope x 2. Severe anemia 2* to acute blood loss. Patient was given 2 units of P/C. Scheduled for NINA (myomectomy?) in a month at [facility]. History of Present Illness: Started with LMP 10.09.2018. Continuous flow, heavy with clots. Sl. better now. - History Source History Provided By: Patient Limitations to Obtaining History: No Limitations - Past Medical History Pulmonary: Yes: Asthma ...LMP: 11/06/18 ...LMP Comment: HEAVY BLEEDING ...: No Heme/Onc: Yes: Anemia - Past Surgical History Past Surgical History: Yes: (She's para 2 with 1 NVD and 1 C/S.), Cystectomy (missed abs.) - Alcohol/Substance Use Hx Alcohol Use: No - Smoking History Smoking history: Never smoked Have you smoked in the past 12 months: No Home Medications - Allergies Allergies/Adverse Reactions: Allergies Allergy/AdvReac Type Severity Reaction Status Date / Time No Known Drug Allergies Allergy Verified 11/08/18 17:06 - Home Medications Home Medications: Ambulatory Orders Nitrofurantoin Monohyd/M-Cryst [Nitrofurantoin [place]-Mcr 100 mg] 100 mg PO BID Acetaminophen [Pain Relief] 650 mg PO PRN 10/10/16 Doxycycline Monohydrate [Mondoxyne Nl] 100 mg PO BID #6 capsule 10/10/16 Ibuprofen [Advil -] 200 mg PO QID 10/10/16 Methylergonovine Maleate [Methergine -] 0.2 mg PO TID #6 tablet MDD 2 10/10/16 Family Disease History - Family Disease History Other Family History: No F/Hx of ovarian or uterin ca. 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 Vital Signs: Vital Signs Temperature 98.5 F 11/09/18 15:05 Pulse Rate 103 H 11/09/18 15:05 Respiratory Rate 20 11/09/18 15:05 Blood Pressure 120/67 11/09/18 15:05 O2 Sat by Pulse Oximetry (%) 96 11/09/18 09:00 Constitutional: Yes: Well Nourished External Genitalia: Yes: Normal Internal Exam Deferred: No Vaginal Exam: Yes: Bleeding Cervix: Yes: Normal Uterus: Yes: Enlarged Adnexa: Not Palpable: Left, Right ....Post : Yes: Uterus firm (Uterus with fibroids, 16-18 wks,, limited mobility.) Labs: CBC, BMP 11/09/18 08:33 11/09/18 06:00 Problem List - Problems (1) Anemia Code(s): D64.9 - ANEMIA, UNSPECIFIED Qualifiers: Anemia type: unspecified type Qualified Code(s): D64.9 - Anemia, unspecified (2) Fibroids Code(s): D21.9 - BENIGN NEOPLASM OF CONNECTIVE AND OTHER SOFT TISSUE, UNSP (3) Vaginal bleeding Code(s): N93.9 - ABNORMAL UTERINE AND VAGINAL BLEEDING, UNSPECIFIED Assessment/Plan Large uterus with leiomyomata. Menorrhagiae. Anemia sec. to prolonged, excessive blood loss Thick EE on sonogram. Rt ovarian cyst x 2; larger 5.4 cm. Plan: Aygestin 5 mg TID to control bleeding. Discharge if stable. Endometrial sampling; Hysteroscopy and D&C at the hospital vs. office D&C. Definitive Rx: total hysterectomy with bilateral salpingectomy. Considering ovarian preservation (left, without the cyst) after w/u completed. All fully discussed w pt and Carl Geiger.
--- NOTE | 2018-11-09 18:02 | CONS ---
DATE OF CONSULTATION: DATE OF DICTATION: 11/09/2018 HISTORY OF PRESENT ILLNESS: Patient is a 48-year-old female, admitted yesterday to [facility], gynecological consultation is being requested by Dr. Henry. The patient was admitted via the emergency room with very heavy bleeding. A last menstrual period was about a month ago on December 09, 2018. The patient has been bleeding continuously and at times very heavy with clots. She had syncope x2 before arriving to the emergency room. Patient was admitted to the hospital and transfused 2 units. It became apparent that she has large uterine leiomyomata. Patient was followed by another doctor at [facility] and she was scheduled for either supracervical hysterectomy or myomectomy; it is not clear at that moment what was the planned surgery. Patient improved after 2 units of packed cells and is now stable and relatively comfortable. A sonogram confirmed large uterus with thick endometrial echo of 22 mm. Also, right sided ovarian cyst x2, the larger one measuring about 5 cm. Patient still menstruates, does not have menopausal symptoms. She has a history of severe menorrhagia. PAST HISTORY: Unremarkable. She is para 2 with 1 normal vaginal delivery and 1 section. Two missed abortions. REVIEW OF SYSTEMS: Unremarkable other than above mentioned problems and respiratory system characteristic for mild wheezing with history of asthma. ALLERGIES: No known allergies. Patient is not a smoker. Denies use of alcohol or drugs. PHYSICAL EXAMINATION: General: Very pleasant, well developed, moderately overweight female, alert, oriented, in no acute distress. Abdomen: Soft, flat, slightly obese. Well healed scar. Uterus palpated at about 16 to 18 weeks' level. Pelvis: Examination done. External genitalia, vulva, vagina, cervix essentially within normal limits, tight although multiparous. Dark blood, compatible with menses like flow. No obvious active bleeding at that point. Bimanual pelvic examination showed large irregular uterus compatible with fibroid 16 to 18 weeks, limited mobility. No tenderness. Adnexa nonpalpable. Rectovaginal: Examination deferred. IMPRESSION: 1. Large uterus with leiomyomata. 2. Menorrhagia, continues dysfunctional heavy flow. 3. . 4. Thick endometrial echo on the ultrasound. 5. Right adnexal double cyst, the larger measuring about 5 cm. PLAN: Aygestin 5 mg t.i.d. to control the bleeding. I believe patient needs endometrial sounding before definitive surgery, which could be hysteroscopy and dilation and curettage under anesthesia at the hospital or office dilation and curettage. I would assess a and possibly CA125 which is an ovarian cancer marker. Agree with definitive surgery that would be total hysterectomy, either abdominal or laparoscopic/robotic, with bilateral salpingectomy. Right ovary most likely should be removed in view of the cyst. Left ovary I would preserve if circumstances allow. I would consider removal of the cervix together with the specimen. That was fully discussed with patient as well as Dr. Henry. She needs to process all the information and make a decision. In the meantime she will be started on Aygestin 10 mg to start and then 5 mg t.i.d. Possible discharge tomorrow morning. I will be glad to follow the patient through my office versus her following up with her doctor at [facility]. Thank you very much for the courtesy of this very interesting consultation. OLAMIDE VILLANUEVA MD [id number]
[2018-11-09] MEDS ORDERED: PT OWN MED DRAWER 7, Y5N ONE ×2 (18:33→21:52)
[2018-11-09 23:49] LABS: HEMATOCRIT 25.4 % (32.4-45.2); HEMOGLOBIN 8.5 GM/dL (10.7-15.3); MCH 29.9 pg (25.7-33.7); MCHC 33.3 g/dl (32.0-36.0); MEAN CELL VOLUME 89.8 fl (80-96); MEAN PLT VOLUME 6.4 fl (7.5-11.1); PLATELET COUNT 299 K/MM3 (134-434); RBC 2.83 M/mm3 (3.60-5.2); RDW 13.9 % (11.6-15.6); WHITE BLOOD COUNT 12.3 K/mm3 (4.0-10.0)
[2018-11-10 06:40] LABS: HEMATOCRIT 23.2 % (32.4-45.2); MCH 30.7 pg (25.7-33.7); MCHC 34.4 g/dl (32.0-36.0); MEAN CELL VOLUME 89.2 fl (80-96); MEAN PLT VOLUME 6.5 fl (7.5-11.1); PLATELET COUNT 292 K/MM3 (134-434); WHITE BLOOD COUNT 10.5 K/mm3 (4.0-10.0)
--- NOTE | 2018-11-10 07:57 | DS ---
Physical Examination Vital Signs: Vital Signs Temperature 98.9 F 11/10/18 07:20 Pulse Rate 93 H 11/10/18 07:20 Respiratory Rate 20 11/10/18 07:20 Blood Pressure 112/68 11/10/18 07:20 O2 Sat by Pulse Oximetry (%) 96 11/09/18 21:00 Findings/Remarks: AWAKE ALERT FEELS BETTER STILL HAVING VAGINAL BLEEDING HOWEVER, IT HAS SLOWED DOWN. Constitutional: Yes: No Distress Eyes: Yes: WNL HENT: Yes: WNL Neck: Yes: WNL Cardiovascular: Yes: WNL Respiratory: Yes: Wheezes Gastrointestinal: Yes: WNL Renal/: Yes: Vaginal Bleeding Musculoskeletal: Yes: WNL Extremities: Yes: WNL Edema: No Peripheral Pulses WNL: Yes Integumentary: Yes: WNL Wound/Incision: Yes: Clean/Dry Neurological: Yes: WNL ...Motor Strength: WNL Psychiatric: Yes: WNL Labs: CBC, BMP 11/09/18 06:00 Discharge Summary Reason For Visit: ANEMIA, VAGINAL BLEEDING Current Active Problems Anemia (Acute) Asthma (Acute) Fibroids (Acute) Symptomatic anemia (Acute) Vaginal bleeding (Acute) Procedures: Principal: [facility] Hospital Course: ADMITTED FOR MYOMETRIAL BLEEDING, TRANSFUSED PRBC, TOLERATED WELL NO DISTRESS TODAY. Condition: Improved - Instructions Diet, Activity, Other Instructions: PATIENT HAS AN APPOINTMENT TODAY WITH DR HERRERA GYNECOLOGY RETURN TO HOSPITAL IF BLEEDING WORSENS PROGESTERONE TID FOR 2 DAYS BRIDGE TO OUTPATIENT CARE WITH TIRE RECAPPER. Disposition: HOME - Home Medications Comprehensive Discharge Medication List: Ambulatory Orders Acetaminophen [Pain Relief] 650 mg PO PRN 10/10/16 Ibuprofen [Advil -] 200 mg PO QID 10/10/16 Acetaminophen [Tylenol .Regular Strength -] 650 mg PO Q4H PRN tablet 11/10/18 Albuterol 2.5/Ipratropium 0.5 [Duoneb -] 1 amp NEB Q6H PRN #90 amp 11/10/18 Medroxyprogesterone Acetate [Provera -] 10 mg PO TID #6 tablet 11/10/18
[2018-11-10 10:27] VITALS: BP 143/73; PULSE 102; TEMP 98.6
== END 2018-11-10 10:45 | disposition home or self-care (01) | DRG 760 ==
LOC: JER 16:58 → JERBED 20:51 → J8W 11-09 03:44
PROVIDERS: ADMIT Family Medicine; ATTEND Family Medicine
PROC: 30233N1 Transfusion of Nonautologous Red Blood Cells into Peripheral Vein, Percutaneous Approach (ICD-10-PCS; principal; 2018-11-08)
DX: D25.9 Leiomyoma of uterus, unspecified (principal); D62 Acute posthemorrhagic anemia; J45.909 Unspecified asthma, uncomplicated; N93.9 Abnormal uterine and vaginal bleeding, unspecified; N92.0 Excessive and frequent menstruation with regular cycle
CPT/HCPCS: 36415; 36430; 36511; 76856-TC; 80048; 80053; 84703; 85025; 85027; 85610; 85730; 86850; 86900; 86901; 86922; 93005; 93010; 99285-25; J7030; P9038; P9058